=== PATIENT | male | born 1980 | race Two or more races ===

== ENCOUNTER 2021-03-24 05:30 | Day surgery (SDC) | payer OTHER ==
[2021-03-24] MEDS ORDERED: NEXIUM 24HR20 MG PO (09:08)
[2021-03-24] MEDS ORDERED: QUESTRAN PACKET4 GM PO (09:08)
== END 2021-03-24 10:30 | disposition home or self-care (01) ==
LOC: AMB-ENDOS 05:30
PROVIDERS: ATTEND Surgery
DX: K29.60 Other gastritis without bleeding (principal); K44.9 Diaphragmatic hernia without obstruction or gangrene; Z20.822 Contact with and (suspected) exposure to COVID-19